=== PATIENT | female | born 1995 | race Caucasian/White ===

== ENCOUNTER 2019-04-08 13:20 | Emergency (ER) | payer BC, SELFPAY ==
[2019-04-08 13:28] VITALS: BP 136/81; PULSE 76; RESP 14; TEMP 36.8; O2SAT 100; BMI 22.9
--- NOTE | 2019-04-08 13:30 | DI.RAD.S_ITS ---
PROCEDURE: XR ANKLE LT MIN 3V INDICATIONS: fall out of tree, medial left ankle pain TECHNIQUE: 3 views of the ankle were acquired. COMPARISON: None. FINDINGS: Bones: There is a moderately displaced fracture of the distal fibula. There is widening of the medial ankle mortise. Soft tissues: No tibiotalar joint effusion. Achilles tendon appears normal. IMPRESSION: 1. Lateral malleolus fracture. 2. Deltoid ligament tear. Dictated by: Latonya Burnett M.D. on 04/08/2019 at 12:49 Approved by: Latonya Burnett M.D. on 04/08/2019 at 12:50
[2019-04-08] MEDS: HYDROMORPHONE 1 MG INJ 0.5 MG IV (14:35)
[2019-04-08] MEDS: ONDANSETRON 4 MG/2 ML INJ IV (14:36)
--- NOTE | 2019-04-08 15:13 | PC.NURSE ---
Pt's abrasions on left foot were cleaned and Bacitracin and bandaid applied.
[2019-04-08 15:15] VITALS: BP 123/72; PULSE 63; RESP 14; O2SAT 100
--- NOTE | 2019-04-08 19:17 | ED_ITS ---
HPI - Extremity Injury (Lower) <ELIZABETH Chu - Last Filed: 04/08/19 19:17> General Chief Complaint: Extremity Injury, Lower Stated Complaint: Left ankle thinks it's broken Time Seen by Provider: 04/08/19 13:23 Source: patient and family Mode of arrival: wheelchair Limitations: no limitations History of Present Illness HPI Narrative: The patient is a 23-year-old female who denies any smoking or pertinent medical history presents with a chief complaint of left ankle pain. She [place], and fell off of a branch landing on her left ankle. She felt a pop and a crack. She was evaluated by EMS there, given an IV and 1 mg of Dilaudid. She states she has not injured her left ankle before. She is able to wiggle her left toes. She has applied ice. She is placed in a splint by EMS. She states she has some superficial cuts to the top of her foot. She denies any left knee pain. She denies any other injury from her fall. She denies any loss of consciousness, hitting red, neck pain back pain numbness or tingling Related Data Previous Rx's Medication Instructions Recorded hydrocodone-acetaminophen 1 tab PO Q4-6H PRN #14 tab 04/08/19 ondansetron 4 mg PO Q6H PRN #20 tab 04/08/19 Allergies Allergy/AdvReac Type Severity Reaction Status Date / Time No Known Drug Allergies Allergy Verified 04/08/19 13:27 Review of Systems <ELIZABETH Chu - Last Filed: 04/08/19 19:17> Review of Systems GENERAL: Denies chills, fatigue, malaise, fever, sweats. HEENT: Denies sinus pain, ear pain, sore throat, difficulty swallowing, dizziness. RESPIRATORY: Denies dyspnea, cough, wheezing, hemoptysis, sputum. CARDIOVASCULAR: Denies chest pain, palpitations, orthopnea, edema, GASTROINTESTINAL: Denies nausea, vomiting, abdominal pain, diarrhea, constipation, melena. : Denies dysuria, frequency, incontinence, hematuria, urinary retention. MUSCULOSKELETAL: See HPI SKIN: See HPI NEUROLOGIC: Denies weakness, headache, numbness, change in speech, confusion, seizures, incoordination. PSYCHIATRIC: No concerning psychosocial issues. 12 point review of systems is negative except for those stated above PFSH <ELIZABETH Chu - Last Filed: 04/08/19 19:17> Medical History (Updated 04/08/19 @ 19:13 by ELIZABETH Chu) Family history non-contributory (Acute) Medical history non-contributory (Acute) Social History Smoking Status: Unknown if ever smoked Social History Smoking Status: Unknown if ever smoked Exam <ELIZABETH Chu - Last Filed: 04/08/19 19:17> Narrative Exam Narrative: GENERAL: This is a well-nourished, well-developed patient appears uncomfortable HEAD: Atraumatic. Normocephalic. No temporal or scalp tenderness. EYES: Pupils equal round and reactive. Extraocular motions intact. No scleral icterus. No injection or drainage. ENT: Nose without bleeding, purulent drainage or septal hematoma. Throat without erythema, tonsillar hypertrophy or exudate. Uvula midline. Airway patent. NECK: Trachea midline. No JVD or lymphadenopathy. Supple, nontender, no meningeal signs. CARDIOVASCULAR: Regular rate and rhythm RESPIRATORY: No cough. No increased respiratory effort. No accessory muscle use. EXTREMITIES: Pain to palpation left ankle. Able to wiggle left toes. Positive pedal pulses left foot. Decreased range of motion all glover left ankle. Patient has full range of motion noted left knee. Able to flex and extend like knee. No pain to palpation left knee. Left ankle in splint by EMS. BACK: Nontender without deformity or crepitance. No flank tenderness. NEURO: AOx3. No obvious cranial nerve deficit. SKIN: 20.5 cm superficial abrasions noted to top of left foot. Initial Vital Signs Initial Vital Signs: Vital Signs Temperature 98.3 F 04/08/19 13:28 Pulse Rate 76 04/08/19 13:28 Respiratory Rate 14 04/08/19 13:28 Blood Pressure 136/81 04/08/19 13:28 Pulse Oximetry 100 04/08/19 13:28 <Crystal Thomas MD - Last Filed: 04/08/19 19:55> Initial Vital Signs Initial Vital Signs: Vital Signs Temperature 98.3 F 04/08/19 13:28 Pulse Rate 76 04/08/19 13:28 Respiratory Rate 14 04/08/19 13:28 Blood Pressure 136/81 04/08/19 13:28 Pulse Oximetry 100 04/08/19 13:28 Procedures <ELIZABETH Chu - Last Filed: 04/08/19 19:17> Orthopedic Splinting/Casting Injury #1: Side: left Lower Extremity Immobilizer: boot orthosis Other Orthopedic Equipment: crutches Post splinting neuro exam: intact Post splinting vascular exam: intact Placed by: Nursing Additional Comments: Superficial abrasion also cleansed by nursing staff Course <ELIZABETH Chu - Last Filed: 04/08/19 19:17> Orders Ordered: ED Orders 04/08/19 13:30 XR ankle LT min 3V Stat Discontinued Medications Hydromorphone HCl (Dilaudid) 0.5 mg IV NOW ONE Stop: 04/08/19 14:25 Last Admin: 04/08/19 14:35 Dose: 0.5 mg Ondansetron HCl (Zofran) 4 mg IV NOW ONE Stop: 04/08/19 14:25 Last Admin: 04/08/19 14:36 Dose: 4 mg Vital Signs - 8 hr 04/08/19 13:28 04/08/19 15:15 Temperature 98.3 F Pulse Rate 76 63 Respiratory Rate 14 14 Blood Pressure 136/81 Blood Pressure [Left Arm] 123/72 Pulse Oximetry 100 100 <Crystal Thomas MD - Last Filed: 04/08/19 19:55> Orders Ordered: ED Orders 04/08/19 13:30 XR ankle LT min 3V Stat Discontinued Medications Hydromorphone HCl (Dilaudid) 0.5 mg IV NOW ONE Stop: 04/08/19 14:25 Last Admin: 04/08/19 14:35 Dose: 0.5 mg Ondansetron HCl (Zofran) 4 mg IV NOW ONE Stop: 04/08/19 14:25 Last Admin: 04/08/19 14:36 Dose: 4 mg Vital Signs - 8 hr 04/08/19 13:28 04/08/19 15:15 Temperature 98.3 F Pulse Rate 76 63 Respiratory Rate 14 14 Blood Pressure 136/81 Blood Pressure [Left Arm] 123/72 Pulse Oximetry 100 100 MDM - Extremity Injury (Lower) <ELIZABETH Chu - Last Filed: 04/08/19 19:17> Imaging Data Ankle x-ray: Radiologist's impression: Sary Joseph 23 F 1995 [place] [address] XRay Report Signed Patient: Sary JosephMR#: [id number] : 1995Acct:[id number] Age/Sex: 23 / FDate of Service: 04/08/19 Loc: ED Accession Number: [id number] Procedure: XR ankle LT min 3V Ordering Provider: Radha Santacruz- PROCEDURE: XR ANKLE LT MIN 3V INDICATIONS: fall out of tree, medial left ankle pain TECHNIQUE: 3 views of the ankle were acquired. COMPARISON: None. FINDINGS: Bones: There is a moderately displaced fracture of the distal fibula. There is widening of the medial ankle mortise. Soft tissues: No tibiotalar joint effusion. Achilles tendon appears normal. IMPRESSION: 1. Lateral malleolus fracture. 2. Deltoid ligament tear. Dictated by: Latonya Burnett M.D. on 04/08/2019 at 12:49 Approved by: Latonya Burnett M.D. on 04/08/2019 at 12:50 MDM Narrative Medical decision making narrative: The patient is a 23-year-old female who presents with a left ankle injury. X-ray shows a lateral malleolus fracture as well as suspected deltoid ligament tear. The patient is in the middle of traveling, and is supposed to fly home to [place]. I spoke with Dr. Garf, from [facility]. She viewed her x-rays, recommended a walking boot and crutches. I gave the patient [place] as well as Zofran prescriptions. Given that she is flying and does take control, Dr. Graf suggested a full-strength aspirin 325 mg b.i.d. while flying. Encouraged strict follow-up with Orthopedics upon arrival home. Walking boot was placed without incident. Patient has no questions or concerns. Discussed return precautions of decreased circulation to toes. Discharge Plan Departure Patient Disposition: Home Clinical Impression: Fracture of distal end of fibula Qualifiers: Encounter type: initial encounter Fracture type: closed Fracture morphology: other fracture Laterality: left Qualified Code(s): S82.832A - Other fracture of upper and lower end of left fibula, initial encounter for closed fracture Discharge Date/Time: 04/08/19 15:31 Interventions: ED Discharge Assessment Last Done: 04/08/19 15:29 Instructions: How to Use Crutches, DI for Ankle Fracture, How To Perform RICE (Rest, Ice, Compress, Elevate) Activity Restrictions/Additional Instructions: Unfortunately you broke your ankle. Dr. Graf, from [facility] viewed your x-rays. We have placed you in a walking boot and given you crutches. Please taken one full strength aspirin twice a day to reduce your risk of blood clots especially while traveling and taking control Please follow up with an orthopedist as soon as you get home. Please use rest ice compression elevation. Prescriptions: New hydrocodone-acetaminophen 5-325 mg tablet 1 tab PO Q4-6H PRN (Reason: pain) Qty: 14 RF: 0 ondansetron 4 mg tablet,disintegrating 4 mg PO Q6H PRN (Reason: nausea and vomiting) Qty: 20 RF: 0 Referrals: [facility] [Provider Group]
== END 2019-04-08 15:31 | disposition home or self-care (01) ==
PROVIDERS: Emergency Provider Nurse Practitioner Family
DX: S82.832A Other fracture of upper and lower end of left fibula, initial encounter for closed fracture (principal)
CPT/HCPCS: 29580; 73610; 96374; 96375; 99282; 99284; J1170; J2405